=== PATIENT | female | born 1940 | race Caucasian/White ===

== ENCOUNTER 2018-11-06 18:26 | Inpatient (IN) | payer OTHER ==
[~2018-11-06] VITALS: Ht 157.5 cm; Wt 43.1 kg
[2018-11-06 18:36] VITALS: Ht 157.5 cm; Wt 43.1 kg
--- NOTE | 2018-11-06 18:42 | NUR ---
EKG IN PROGRESS
--- NOTE | 2018-11-06 19:40 | NUR ---
PER PT SHE HAS BEEN FEELING DIZZY FOR TWO DAYS OFF AND ON. PT STS THAT SHE FEELS THAT THE ROOM IS "SPINNING". PT DENIES ANY N/V. PT STS THAT SHE HAS COPD AND DOES NOT KNOW IF SHE IS HAVING SOB OR CHEST PRESSURE. PT STS SHE IS ON 2L NC AT HOME. PT PLACED ON 2L NC SPAO2 99%. UPON AUSCULATATION PT HAS CLEAR CHRISTOPHER LUNG SOUNDS. PER PT HAS STAGE 2 KINDEY "ISSUES". PT DENIES ANY ABDOMINAL PAIN. RESP E/U. NO DISTRESS NTOED. WILL CONTINUE TO MONITOR.
--- NOTE | 2018-11-06 20:08 | NUR ---
DPT PLACED ON BEDPAN.
--- NOTE | 2018-11-06 20:08 | NUR ---
LAB AT BEDSIDE.
[2018-11-06 20:28] LABS: BASOPHIL % 0.1 % (0-2); PLATELET COUNT 207 x10^3mcL (130-400); RED CELL DISTRIBUTION WIDTH 13.1 % (11.5-14.5)
[2018-11-06 20:52] LABS: CALCIUM 9.2 mg/dL (8.5-10.1); CARBON DIOXIDE 31.6 mmol/L (21-32); CHLORIDE SERUM 104 mmol/L (98-107); CREATININE SERUM 1.4 mg/dL (0.6-1.0); GLUCOSE SERUM 101 mg/dL (74-106); POTASSIUM SERUM 4.8 mmol/L (3.5-5.1); SODIUM SERUM 143 mmol/L (136-145)
[2018-11-06 20:57] LABS: ALBUMIN 3.5 g/dL (3.4-5.0); ALKALINE PHOSPHATASE 68 U/L (46-116); ALT/SGPT 15 U/L (14-59); AST/SGOT 13 U/L (15-37); BILIRUBIN TOTAL 0.18 mg/dL (0.20-1.00); TOTAL PROTEIN, SERUM 6.5 g/dL (6.4-8.2)
[2018-11-06 21:09] LABS: microscopic required? NO
--- NOTE | 2018-11-06 21:10 | NUR ---
STRAIGHT CATH PERFORMED PT TOLERATED WELL. 6CC.
[2018-11-06 21:51] LABS: urine erythrocyte NEGATIVE (NEGATIVE)
--- NOTE | 2018-11-06 22:25 | NUR ---
PT PLACED ON BEDPAN. PT STS THAT SHE IS STILL FEELING DIZZY. DR. STAHL INFORMED. RESP E/U. NO DISTRESS NOTED. WILL CONTINUE TO MONITOR.
[2018-11-07] VITALS (7 sets, daily range): BP systolic 109–189; BP diastolic 53–80
[2018-11-07] MEDS ORDERED: MIRTAZAPINE15 M2 PO (00:48)
[2018-11-07] MEDS ORDERED: OMEPRAZOLE10 M1 PO (00:48)
[2018-11-07] MEDS ORDERED: ASPIR 8181 MG PO (00:48)
[2018-11-07] MEDS ORDERED: NAMENDA10 M2 PO (00:48)
[2018-11-07] MEDS ORDERED: RESTORIL15 MG PO (00:49)
[2018-11-07] MEDS ORDERED: ALBUTEROL1.25 MG/3 IH (00:49)
[2018-11-07] MEDS ORDERED: NATURAL IRON65 MG PO (00:49)
[2018-11-07] MEDS ORDERED: NATURE'S BLEND500 MG PO (00:49)
[2018-11-07] MEDS ORDERED: INCRUSE EL62.5 MCG/A (00:50)
--- NOTE | 2018-11-07 01:30 | NUR ---
RECEIVED PT FROM ED VIA BEBO. ORIENTED PT TO ROOM AND SURROUNDINGS. IV NOTED TO RAC PATENT AND INTACT. INSTRUCTED PT ON THE USE OF CALL LIGHT FOR ASSISTANCE. ENDORSED PT TO PRIMARY NURSE SHINE
[2018-11-07 01:56] LABS: MAGNESIUM 2.3 mg/dL (1.8-2.4)
[2018-11-07 01:57] LABS: T3 TOTAL 0.85 ng/mL
[2018-11-07 02:00] LABS: FREE T4 0.93 ng/dL (0.76-1.46); FREE THYROXINE INDEX 1.9 ug/dL (1.4-4.5); T4(THYROXINE) 5.4 ug/dL (4.7-13.3)
[2018-11-07 02:13] LABS: CHOLESTEROL/HDL RATIO 2.9
--- NOTE | 2018-11-07 06:36 | NUR ---
PT IS AWAKE, CONFUSED. STATES SHE WANTS TO GO HOME AND IS WAITING FOR HER TO COME AND GET HER. RENDERED MANA CARE 3 TIMES. CONTINUES TO SAY SHE IS WET EVEN AFTER JUST BEING CHANGED. REORIENTED PT TO WHERE SHE IS AND THE REASONS SHE IS HERE. SHE STATES "OKAY, I WILL WAIT FOR MY ". PT BREATHING EVEN AND UNLABORED ON 2L NC. TOLERATING WELL. ALL NEEDS ASSESSED AND ATTENDED TO. BED AT LOWEST SETTING. SIDE RAILS X2 UP. CALL LIGHT WITHING REACH. WILL ENDORSE CARE TO AM NURSE.
[2018-11-07 06:57] LABS: BASOPHIL % 0.5 % (0-2); PLATELET COUNT 187 x10^3mcL (130-400); RED CELL DISTRIBUTION WIDTH 13.1 % (11.5-14.5)
[2018-11-07 07:43] LABS: CALCIUM 8.9 mg/dL (8.5-10.1); CARBON DIOXIDE 27.8 mmol/L (21-32); CHLORIDE SERUM 108 mmol/L (98-107); CREATININE SERUM 1.1 mg/dL (0.6-1.0); GLUCOSE SERUM 90 mg/dL (74-106); POTASSIUM SERUM 3.9 mmol/L (3.5-5.1); SODIUM SERUM 145 mmol/L (136-145)
--- NOTE | 2018-11-07 07:55 | NUR ---
A+OX2, CONFUSED, MEDSURG, PULSES MODERATE AND EQUAL CHRISTOPHER, NO EDEMA NOTED, LUNG SOUNDS CTA, 2L NC, BOWEL SOUNDS ACTIVE, INCONTINENT, GENERALIZED WEAKNESS, SURGICAL INCISION WITH JIAN TO L ABD, IV IN RAC WITH NS @ 75 ML/HR, SITE WNL, CALL LIGHT WITHIN REACH.
--- NOTE | 2018-11-07 10:30 | NUR ---
ASSISTED PT TO BATHROOM AND BACK TO BED, PT ABLE TO AMBULATE WITH MINIMAL ASSISTANCE, AT BEDSIDE, NO RESPRIATORY DISTRESS NOTED, DENIES PAIN, CALL LIGHT WITHIN REACH.
--- NOTE | 2018-11-07 12:36 | NUR ---
DR PRASAD NOTIFIED OF BP 189/80.
--- NOTE | 2018-11-07 12:43 | NUR ---
PT PLACED ON TELE 20. HR 89, NSR.
--- NOTE | 2018-11-07 12:52 | NUR ---
RECEIVED PATIENT AND REPORT FROM CAS ROBLEDO. SPOKE WITH PATIENT ABOUT SAFETY AND THE PLAN OF CARE FOR THE REST OF THE DAY. AT BEDSIDE. BOTH PATIENT AND AGREE AND VERBALIZE UNDERSTANDING. CAS ROBLEDO WILL ADMINISTER PRN APRESOLINE AND THIS NURSE WILL REASSESS ONCE GIVEN. CALL LIGHT IN REACH, PATIENT IN BED EATING LUNCH TRAY AT THIS TIME.
--- NOTE | 2018-11-07 13:08 | NUR ---
PT GIVEN HYDRALAZINE IVP FOR BP 189/80. TELE STRIPS PRINTED BEFORE AND AFTER MED GIVEN. ENDORSED CARE TO CHATO CARDOZO.
--- NOTE | 2018-11-07 14:05 | NUR ---
PRN APRESOLINE ADMINISTERED BY CAS ROBLEDO. BP NOW 116/58. WILL NOTIFY DR KOLB. CALL LIGHT IN REACH AT THIS TIME.
--- NOTE | 2018-11-07 17:28 | NUR ---
PATIENT CONFUSION CONTINUES. PATIENT HAS FREQUENT ATTEMPTS TO SIT UP IN BED. WHEN ASKED WHAT SHE IS TRYING TO DO, PATIENT UNABLE TO RESPOND ADEQUATELY. PATIENT DOES FOLLOW DIRECTIONS TO GET BACK INTO BED. CALL LIGHT IN REACH, BED ALARM ON.
--- NOTE | 2018-11-07 18:43 | NUR ---
PATIENT BACK INTO BED. DOES NOT UNDERSTAND SITUATION W MILD AGITATION. REORIENT TO SITUATION. PATIENT NOW ARRIVED TO FLOOR. WILL ENDORSE TO ONCOMING NURSE, CALL LIGHT IN REACH AT THIS TIME.
--- NOTE | 2018-11-07 19:35 | NUR ---
RECEIVED REPORT FROM AM NURSE. PT AWAKE LAYING DOWN IN BED WITH AT BEDISDE. PT A/O X2, CONFUSED ABOUT WHERE SHE IS. [place] REORIENT HER NECESSARY. ON TELE# 20 NSR, DENIES ANY CP/PRESSURE AT THIS TIME. PALPABLE PULSES TO BLE AND BUE. NO EDEMA NOTED. LUNG SOUNDS CTA ON 2L NC. BREATHING EVEN AND UNLABORED. ABD SOFT AND NONDISTENDED. ACTIVE BOWEL SOUNDS X4 QUAD. DENIES N/V/D. INCONTINENT TO URINE. GENERALIZED WEAKNESS. 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 NO REDNESS OR SWELLING NOTED AT THE SITE. NS RUNNING TO RAC. SITE FREE FROM REDNESS AND SWELLING. FALL PRECAUTIONS IN PLACE. BED AT LOWEST SETTING. BED ALARM ON. SIDE RAILS X2 UP. CALL LIGHT WITHING REACH. REMAINS AT BEDSIDE. WILL CONTINUE TO MONITOR.
--- NOTE | 2018-11-08 00:38 | NUR ---
PT LAYING DOWN IN BED WITH EYES CLOSED. BREATHING EVEN AND UNLABORED ON 2L NC. NO ACUTE DISTRESS NOTED. NS RUNNING TO RAC AT 75ML/HR. BED AT LOWEST SETTING, SIDE RAILS X2 UP. BED ALARM ON. CALL LIGHT WITHING REACH. WILL CONTINUE TO MONITOR.
--- NOTE | 2018-11-08 05:27 | NUR ---
PT SLEPT WELL THROUGHOUT THE NIGHT. BREATHING EVEN AND UNLABORED ON 2L NC. NO ACUTE DISTRESS NOTED. NS RUNNING TO RAC. SITE FREE FROM REDNESS AND SWELLING. BED AT LOWEST SETTING. SIDE RAILS X2 UP. BED ALARM ON. CALL LIGHT WITHING REACH. WILL ENDORSE CARE TO AM NURSE.
[2018-11-08 05:41] VITALS: BP 115/56
[2018-11-08 06:40] LABS: CALCIUM 8.8 mg/dL (8.5-10.1); CHLORIDE SERUM 108 mmol/L (98-107); CREATININE SERUM 1.3 mg/dL (0.6-1.0); GLUCOSE SERUM 79 mg/dL (74-106); POTASSIUM SERUM 4.6 mmol/L (3.5-5.1); SODIUM SERUM 144 mmol/L (136-145)
[2018-11-08 07:09] LABS: BASOPHIL % 0.5 % (0-2); PLATELET COUNT 176 x10^3mcL (130-400); RED CELL DISTRIBUTION WIDTH 13.4 % (11.5-14.5)
--- NOTE | 2018-11-08 07:44 | NUR ---
RECEIVED PATIENT FROM CAS RIOJAS. PATIENT CONTINUES TO BE CONFUSED, A/OX1 TO PERSON. FREQUENT REORIENTATION TO SITUATION AND SURROUNDINGS UNSUCCESSFUL. PATIENT ASSISTED TO CHAIR AT THIS TIME, WILL KEEP CLOSE WATCH ON PATIENT SHE CONTINUES ATTEMPTS TO GET OUT OF BED. CALL LIGHT IN REACH.
[2018-11-08 08:14] VITALS: BP 115/60
[2018-11-08 13:10] VITALS: BP 118/59
--- NOTE | 2018-11-08 13:28 | NUR ---
PATIENT SEEN RESTING IN BED. NO SIGNS OF DISTRESS. REORIENTED PATIENT TO SITUATION, PLACE, AND NURSING STAFF. AT BEDSIDE, PATIENT TOLERATING LUNCH TRAY. CALL LIGHT IN REACH, BED ALARM ON, PATIENT CLOSE TO NURSES STATION.
[2018-11-08 16:30] VITALS: BP 93/48
--- NOTE | 2018-11-08 17:43 | NUR ---
PATIENT IN BED, WITH NO COMPLAINTS. AT BEDSIDE. PATIENT BP DECREASED TO SBP 90s. PATIENT DENIES DIZZINESS, RODGERS. ABLE TO COMMUNICATE. SS PINK, DRY, WARM. CALL LIGHT IN REACH, WILL FU WITH BP AFTER PATIENT CONSUMES DINNER TRAY. BED ALARM ON.
--- NOTE | 2018-11-08 19:35 | NUR ---
RECEIVED REPORT FROM AN NURSE. PT AWAKE LAYING DOWN IN BED. PT AAOX2, REORIENTED TO PLACE AND REAS0N WHY SHE IS HERE. WILL REORIENT NECESSARY. ON TELE#20 NSR. DENIES CP/PREESSURE AT THIS TIME. PALPABLE PULSES TO BLE AND BUE. NO EDEMA NOTED. LUNG SOUNDS CTA ON 2L NC. BREATHING EVEN AND UNLABORED. ABD SOFT AND NONDISTENDED. ACTIVE BOWEL SOUND X4 QUAD. DENIES N/V/D. LAST BM 11/06/18. INCONTINENT TO URINE. WILL PROVIDE MANA CARE NECESSARY. GENERALIZED WEAKNESS. BEDFAST AT THIS TIME. SX INCISION TO LEFT SIDE OF ABD. NO REDNESS OR SWELLING AT THE SITE. NS RUNNING TO RAC AT 75ML/HR. SITE FREE FROM REDNESS AND SWELLING. BE AT LOWEST SETTING. BED ALARM ON. SIDE RAILS X2 UP. CALL LIGHT JELENA REACH. WILL CONTINUE TO MONITOR.
--- NOTE | 2018-11-08 19:39 | NUR ---
REPORTED PATIENT OFF TO CAS RIOJAS. PATIENT IN BED AT THIS TIME, NO COMPLAINTS, DENIES DIZZINESS, RODGERS. CAS RIOJAS AWARE TO MONITOR FOR PATIENTS BP. CALL LIGHT IN REACH, BED ALARM ON.
--- NOTE | 2018-11-08 20:00 | NUR ---
REASSESED BP, CURRENT BP 113/53 HR 83. NO ACUTE DISTRESS NOTED. BREATHING EVEN AND UNLABORED ON 2L NC. BED AT LOWEST SETTING. BED ALARM ON. CALL LIGHT WITHING REACH. WILL CONTINUE TO MONITOR.
[2018-11-08 20:35] VITALS: BP 93/45
[2018-11-08 21:19] VITALS: BP 113/53
--- NOTE | 2018-11-09 00:53 | NUR ---
PT LAYING DOWN IN BED WITH EYES CLOSED. BREATHING EVEN AND UNLABORED ON 2L NC. NO ACUTE DISTRESS NOTED. NS RUNNING TO RFA AT 75ML/HR. BED AT LOWEST SETTING. SIDE RAILS X2 UP. BED ALARM ON. CALL LIGHT WITHING REACH. WILL CONTINUE TO MONITOR.
[2018-11-09 05:53] VITALS: BP 117/55
[2018-11-09 06:31] LABS: BASOPHIL % 0.8 % (0-2); PLATELET COUNT 164 x10^3mcL (130-400)
[2018-11-09 06:44] LABS: CALCIUM 8.6 mg/dL (8.5-10.1); CARBON DIOXIDE 27.4 mmol/L (21-32); CHLORIDE SERUM 108 mmol/L (98-107); CREATININE SERUM 1.3 mg/dL (0.6-1.0); GLUCOSE SERUM 77 mg/dL (74-106); POTASSIUM SERUM 4.1 mmol/L (3.5-5.1); SODIUM SERUM 144 mmol/L (136-145)
--- NOTE | 2018-11-09 06:47 | NUR ---
PT SLEPT WELL THROUGHOUT THE NIGHT. BREATHING EVEN AND UNLABORED ON 2L NC. NO RESP DISTRESS NOTED. ALL NEEDS ASSESSED AND ATTENDED TO. NS RUNNING TO RFA AT 75 ML/HR. SITE FREE FROM REDNESS AND SWELLING. BED AT LOWEST SETTING. SIDE RAILS X2 UP. CALL LIGHT WITHING REACH. WILL ENDORSE CARE TO AM NURSE.
--- NOTE | 2018-11-09 08:00 | NUR ---
SHIFT ASSESSMENT DONE. PATIENT ALERT, BUT CONFUSION. GARBLED SPEECH. TELE#20; SR; HR = 78. DENIED CHEST PAIN. BREATH SOUND CLEAR UPPER LOBES, FINE CRACKLES CHRISTOPHER BASES. O2 SAT 965 ON 2L VIA N/C. PATIENT USED OXYGEN AT HOME. FINISHED 80% O FCARDIAC DIET BREAKFAST. HAD BM YESTERDAY PER . ABD SURGICAL INCISION W/ 10 JIAN. CLEAN AND DRY, DELIVERY AND MAIL SORTER. GENERAL WEAKNESS. AMBULATED WITH ASSIST. IVF OF NS 75CC/HR INFUSING WELL TO RFA. IV SITE CLEAN. DENIED PAIN. CALL LIGHT IN REACH.
--- NOTE | 2018-11-09 09:20 | NUR ---
B/P = 111/52; ANTIHYPERTENSIVES HOLD. CASSANDRA WRIGHT NOTIFIED.
[2018-11-09] MEDS ORDERED: PRINIVIL10 MG PO (09:32)
[2018-11-09] MEDS ORDERED: NOR5 PO (09:32)
[2018-11-09 09:43] VITALS: BP 111/52
[2018-11-09 10:37] VITALS: BP 111/52
--- NOTE | 2018-11-09 13:00 | NUR ---
D/C TO HOME W/ HOME HEALTH CARE PER ORDER. INSTRUCTION GIVEN TO PATIENT'S . IV D/C'D. PHOTO TO [facility] ABD SURGICAL INCISON SITE TAKEN AND FILES. CONDITION STABLE.
--- NOTE | 2018-11-10 07:16 | NUR ---
PHYSICAL THERAPY DAILY NOTES CO-SIGN All documentation done by the Property Insurance Inspector for 11/09/18 has been reviewed. I agree with the documentation. Reviewed/Co-Signed by: Marjorie Maciel PT Documentation Done by:ASHU TELLO PTA
== END 2018-11-09 13:03 | disposition home health service (06) | DRG 640 ==
LOC: ED 18:26 → DU 11-07 00:18 → MU 11-07 03:07 → DU 11-07 17:59
PROVIDERS: Emergency Medicine; ADMIT General Practice
DX: E86.0 Dehydration (principal); N17.0 Acute kidney failure with tubular necrosis; Z68.1 Body mass index [BMI] 19.9 or less, adult; D64.9 Anemia, unspecified; N18.2 Chronic kidney disease, stage 2 (mild); I12.9 Hypertensive chronic kidney disease with stage 1 through stage 4 chronic kidney disease, or unspecified chronic kidney disease; E78.5 Hyperlipidemia, unspecified; J44.9 Chronic obstructive pulmonary disease, unspecified; F03.90 Unspecified dementia, unspecified severity, without behavioral disturbance, psychotic disturbance, mood disturbance, and anxiety
CPT/HCPCS: 83880; 84439; 97116-GP; 97530-GP; G0378; J0360; J7030; Q0092